=== PATIENT | female | born 1970 | race Caucasian/White ===

== ENCOUNTER 2017-12-02 13:31 | Outpatient (RCR) | payer BC ==
[2017-12-02] VITALS (10 sets, daily range): BP systolic 106–120; BP diastolic 71–80; PULSE 88–99; TEMP 98.8–99.2
[~2017-12-02] VITALS: Ht 175.3 cm; Wt 73.0 kg
[~2017-12-02 13:31] MED LIST: CLARITIN 1010 MG/TAB PO; XARELTO STARTER20 MG PO
[2017-12-02 14:03] LABS: HEMATOCRIT 18.5 % (37.0-47.0); HEMOGLOBIN 4.7 g/dl (12.5-16.0)
[2017-12-02] MEDS ORDERED: XARELTO20 MG PO (14:25)
[2017-12-02 18:46] LABS: BASO # 0.1 (0.0-0.2); BASO % 1.1 % (0.0-2.0); EOS # 0.1 (0.0-0.7); EOS % 1.8 % (0-4.0); GRAN # 3.6 (1.4-6.5); GRAN % 54.8 % (42.2-75.2); LYMPH # 1.9 (1.2-3.4); LYMPH % 28.8 % (20.0-51.0); MEAN CELL VOLUME 66 fl (80.0-100.0); MEAN CORPUSCULAR HGB CONC 28 g/dl (33.0-37.0); MEAN PLATELET VOLUME 9.7 fl (7.4-10.4); MONO # 0.9 (0.1-0.6); MONO % 13.3 % (1.7-9.3); PLATELET COUNT 276 K/mm3 (130-400); RED BLOOD COUNT 3.63 M/mm3 (4.10-5.30); REDCELL DISTRIBUTION WIDTH-CV 26.6 % (11.5-14.5)
[2017-12-02 18:49] LABS: HEMOGLOBIN 6.6 g/dl (12.5-16.0); MEAN CORPUSCULAR HEMOGLOBIN 18 pg (27.0-31.0)
== END 2018-03-02 | disposition still patient (30) ==
LOC: EUO
PROVIDERS: Obstetrics & Gynecology
DX: D50.0 Iron deficiency anemia secondary to blood loss (chronic) (principal); Z01.818 Encounter for other preprocedural examination; Z86.718 Personal history of other venous thrombosis and embolism
CPT/HCPCS: J1650; J7050; P9016

== ENCOUNTER → 2019-04-14 | Outpatient (CLI) | payer BC ==
[~2019-04-14] MED LIST changes: +XARELTO20 MG PO
== END ==
LOC: MC.RAD 15:00
DX: Z12.31 Encounter for screening mammogram for malignant neoplasm of breast (principal)